=== PATIENT | male | born 1985 ===

== ENCOUNTER 2022-10-21 20:49 | Emergency (ER) | payer MEDICAID, OTHER ==
[~2022-10-21] VITALS: Ht 175.3 cm; Wt 99.5 kg
[2022-10-21 21:29] VITALS: BP 129/90
[2022-10-21] MEDS ORDERED: FLUORESCEIN SODIUM 1MG/STRIP BOTHEYE ONE (23:30)
[2022-10-21] MEDS ORDERED: ERYT1OIN6 EACHEYE (23:49)
== END 2022-10-22 00:48 | disposition home or self-care (01) ==
LOC: ER 20:49
DX: H10.32 Unspecified acute conjunctivitis, left eye (principal); Z98.890 Other specified postprocedural states
CPT/HCPCS: 99283